=== PATIENT | male | born 1975 | race Caucasian/White ===

== ENCOUNTER 2020-04-29 12:55 | Emergency (ER) | payer MEDICAID ==
[~2020-04-29] VITALS: Ht 182.9 cm; Wt 90.9 kg
[~2020-04-29 12:55] MED LIST: NAPR-1144 PO; OMEP40CA13 PO; ONDA4TAB12 PO
[2020-04-29] MEDS ORDERED: AMOX-422 PO (13:12)
[2020-04-29 14:05] VITALS: BP 127/92
== END 2020-04-29 13:27 ==
LOC: ER 12:55
DX: S21.112A Laceration without foreign body of left front wall of thorax without penetration into thoracic cavity, initial encounter (principal); F15.90 Other stimulant use, unspecified, uncomplicated; Z72.89 Other problems related to lifestyle; Z79.899 Other long term (current) drug therapy; W54.0XXA Bitten by dog, initial encounter; Y93.89 Activity, other specified; Y92.89 Other specified places as the place of occurrence of the external cause; Y99.8 Other external cause status
CPT/HCPCS: 99283